=== PATIENT | male | born 2000 | race Native Hawaiian/Other Pacific Islander ===

== ENCOUNTER 2022-09-13 08:38 | Emergency (ER) | payer OTHER ==
[~2022-09-13] VITALS: Ht 177.8 cm; Wt 113.4 kg
[2022-09-13 09:45] VITALS: BP 124/81; TEMP 98.2
== END 2022-09-13 09:50 | disposition home or self-care (01) ==
LOC: ED 08:38
DX: T52.4X1A Toxic effect of ketones, accidental (unintentional), initial encounter (principal); T26.82XA Corrosions of other specified parts of left eye and adnexa, initial encounter; X58.XXXA Exposure to other specified factors, initial encounter; Y92.89 Other specified places as the place of occurrence of the external cause
CPT/HCPCS: 99283